=== PATIENT | male | born 1985 | race Caucasian/White ===

== ENCOUNTER 2023-02-04 08:30 | Emergency (ER) | payer MEDICAID ==
[~2023-02-04] VITALS: Ht 170.2 cm; Wt 83.9 kg
[2023-02-04] MEDS ORDERED: PREDNISONE20 MG PO (09:01)
[2023-02-04] MEDS ORDERED: CYCLOBENZAPRINE10 MG PO (09:01)
== END 2023-02-04 09:10 | disposition home or self-care (01) ==
LOC: ED 08:30
DX: M54.42 Lumbago with sciatica, left side (principal)
CPT/HCPCS: 99283; J7512